=== PATIENT | male | born 1955 | race Caucasian/White ===

== ENCOUNTER 2017-07-20 12:52 | Emergency (ER) | payer OTHER ==
[~2017-07-20] VITALS: Ht 177.8 cm; Wt 134.7 kg
[~2017-07-20 12:52] MED LIST: ACTOPLUS MET1 TABLE1 PO; ADULT LOW DOSE81 M1 PO; AMLODIPINE BESYL5 MG PO; ASPIR-TRIN325 M1 PO; ATENOLOL50 MG PO; BENICAR HCT 401 EAC1 PO; BYDUREON P2 MG/0.65 SC; CELEBREX200 MG PO; CENTRUM SILV1 TABLE1 PO; DAILY MULTIPLE1 EACH PO; FEOSOL325 MG PO; GLIMEPIRIDE1 MG PO; GLUCOPHAGE1000 MG PO; GLUCOSAMINE/1 TABLET PO; GLUCOSAMINE1 CAPSULE PO; Glucosamine/Chondroi PO; HUMALOG100 UNIT/2 SC; INVOKANA100 MG PO; INVOKANA300 MG PO; KEFLEX500 MG PO; LANTUS 3 M100 UNITS/ SC; LANTUS 3 M100 UNITS1 SC; LASIX40 MG PO; LIPITOR40 MG PO; LOSARTAN POTAS100 MG PO; LOSARTAN-HCTZ1 EAC2 PO; LYRICA100 MG PO; LYRICA75 MG PO; METFORMIN HCL1000 M1 PO; MULTIVITAMIN1 EAC2 PO; NOVOLOG PE100 UNITS/ SC; ONE-A-DAY ESSE1 EAC1 PO; PERCOCET 5/31 TABLET PO; SENOKOT S,PE1 TABLET PO; SPIRONOLACTONE50 MG PO; TRAMADOL HCL50 MG PO; TRILIPIX135 MG PO; TYLENOL ARTHRI650 MG PO; TYLENOL REGULA325 MG PO; Tenormin PO; VITAMIN B CO1 TABLET PO; VITAMIN D-32000 UNI2 PO; Vicodin,Lortab 5/500 PO; ZYRTEC10 M3 PO; Zyrtec PO
[2017-07-20 13:22] LABS: HEMATOCRIT 40.7 % (38.0-50.0); HEMOGLOBIN 13.5 G/DL (12.5-16.6); MCH 29.6 PG (29.0-34.0); MCHC 33.2 G/DL (30.0-36.0); MCV 89.3 FL (86-99); PLATELET COUNT 163 K/uL (156-360); RBC DIS.WIDTH-CV 13.1 % (11.8-14.6); RBC DIS.WIDTH-SD 42.6 % (39-53); RED BLOOD COUNT 4.56 M/uL (4.00-5.50); WHITE BLOOD COUNT 5.4 K/uL (4.1-10.2)
[2017-07-20 13:36] LABS: CHLORIDE 104 mEq/L (99-109); POTASSIUM 4.5 mEq/L (3.7-5.4); SODIUM 137 mEq/L (136-147)
[2017-07-20 13:37] LABS: GLUCOSE 208 mg/dL (70-99)
[2017-07-20 13:41] LABS: CREATININE 1.1 mg/dL (0.6-1.3); GFR ESTIMATE (CALCULATED) > 59 mL/min/ (58.99-99999)
[2017-07-20 13:42] LABS: UREA NITROGEN (BUN) 22 mg/dL (9-23)
[2017-07-20] MEDS ORDERED: PREDNISONE20 MG PO (17:39)
[2017-07-20] MEDS ORDERED: VALTREX1000 MG PO (17:39)
[2017-07-20 18:05] VITALS: BP 143/64
== END 2017-07-20 18:09 | disposition home or self-care (01) ==
LOC: EME 12:52
DX: G51.0 Bell's palsy (principal); I10 Essential (primary) hypertension; E78.5 Hyperlipidemia, unspecified; E11.9 Type 2 diabetes mellitus without complications; Z79.4 Long term (current) use of insulin; I25.10 Atherosclerotic heart disease of native coronary artery without angina pectoris; Z95.5 Presence of coronary angioplasty implant and graft; Z96.651 Presence of right artificial knee joint; Z87.891 Personal history of nicotine dependence
CPT/HCPCS: 70496; 70498; 71010; 71020; 80048; 85027; 93005; 99281; 99285